=== PATIENT | female | born 1930 | race Hispanic/Latino ===

== ENCOUNTER 2018-01-19 07:21 | Day surgery (SDC) | payer MEDICARE, BC ==
[2018-01-17 14:19] VITALS: BMI 28.6
[2018-01-19 08:16] LABS: BASO # 0.04 K/mm3 (0.0-2.0); BASO % 0.5 % (0.0-3.0); EOS # 0.1 (0.0-0.7); EOS % 1.4 % (1.5-5.0); GRAN # 6.38 (1.4-6.5); HEMOGLOBIN 13.5 g/dL (12.0-16.0); LYMPH # 1.2 (1.2-3.4); LYMPH % 14.1 % (22.0-35.0); MEAN CELL VOLUME 93.4 fl (80.0-105.0); MEAN CORPUSCULAR HEMOGLOBIN 30.7 pg (25.0-35.0); MEAN CORPUSCULAR HGB CONC 32.8 g/dl (31.0-37.0); MEAN PLATELET VOLUME 9.4 fl (7.0-11.0); MONO # 0.7 (0.1-0.6); RBC 4.4 10^6/uL (3.5-6.1); RED CELL DISTRIBUTION WIDTH 14.1 % (11.5-14.5); WHITE BLOOD COUNT 8.4 10^3/uL (4.5-11.0)
[2018-01-19 08:27] LABS: INR 0.99; PARTIAL THROMBOPLASTIN TIME 30.7 Seconds (25.1-36.5); PROTHROMBIN TIME 11.4 SECONDS (9.4-12.5)
[2018-01-19 09:30] LABS: BLOOD UREA NITROGEN 17 mg/dL (7-21); CALCIUM 9.8 mg/dL (8.4-10.5); GFR NON-AFRICAN AMERICAN > 60
[2018-01-19] MEDS ORDERED: Liquid Adhesive TOP ONE ×2 (09:58→10:17)
[2018-01-19] MEDS ORDERED: Bupivacaine 0.5% 50 ML IJ ONE (09:58)
[2018-01-19] MEDS ORDERED: Lidocaine 1% Inj (20ml) ONE (09:59)
[2018-01-19] MEDS ORDERED: Rocuronium 10 mg/ml (5 ml) ONE (10:20)
[2018-01-19] MEDS ORDERED: Etomidate 20 mg/10ml Inj IV ONE (10:20)
[2018-01-19] MEDS ORDERED: Succinylcholine 200 mg/10 ml Inj IV ONE (10:21)
[2018-01-19] MEDS ORDERED: Ciprofloxacin 400mg/200ml D5W 400 MG/200 ML BAG IVPB ONE (10:34)
[2018-01-19] MEDS ORDERED: Desflurane Inhalation Anesthetic Liq (240 ml) ONE (10:46)
[2018-01-19] MEDS ORDERED: Phenylephrine 10 mg/ml Inj ONE (10:48)
[2018-01-19] MEDS ORDERED: ePHEDrine 50 mg/ml Inj ONE (11:24)
[2018-01-19] MEDS ORDERED: Neostigmine Methylsulfate 3mg/3ml Syringe IV ONE (12:20)
[2018-01-19] MEDS ORDERED: Morphine 2 mg/ml ISec IVP PRN (12:38)
[2018-01-19] MEDS ORDERED: Oxycodone/Acetaminophen 5/325 mg Tab PO PRN (12:38)
--- NOTE | 2018-01-19 12:48 | PCM.SURG1 ---
Surgeon's Initial Post Op Note - Surgeon's Notes Surgeon: Dr. Russell Sample Paster: Dr. Gardner PGY3 Type of Anesthesia: General Endo Pre-Operative Diagnosis: nonhealing back wound Operative Findings: see dictation Post-Operative Diagnosis: same Operation Performed: wide local exicison of lesion w/ superior and inferior flap advancement Specimen/Specimens Removed: back leasion Estimated Blood Loss: EBL {In ML}: 20 Blood Products Given: N/A Drains Used: Twin Post-Op Condition: Good Date of Surgery/Procedure: 01/19/18 Time of Surgery/Procedure: 12:48
[2018-01-19] MEDS: Non Formulary Medication (Budesonide/Formoterol Fumarate [Symbicort 160-4.5 Mcg Inhaler] 1 IH SCH (17:49)
[2018-01-19] MEDS ORDERED: Non Formulary Medication (Budesonide/Formoterol Fumarate [Symbicort 160-4.5 Mcg Inhaler] 1 IH SCH (18:00)
[2018-01-19] MEDS ORDERED: Enoxaparin 80 mg Syringe SC SCH (18:00)
[2018-01-19] MEDS: Albuterol 0.5% Inhal Sol (2.5 mg/0.5 ml) UD IH SCH (20:04)
--- NOTE | 2018-01-19 20:46 | OP ---
PROCEDURE DATE: 01/19/2018 PREOPERATIVE DIAGNOSIS: Squamous cell carcinoma of the back, measuring 8 x 6 cm. POSTOPERATIVE DIAGNOSIS: Squamous cell carcinoma of the back, measuring 8 x 6 cm. PROCEDURES PERFORMED: 1. Wide and deep excision of the squamous cell ulcerated skin lesion. 2. Advancement flap closure of the 20 x 9 cm wound. SURGEON: Robe Russell MD [employer] TEAM LEAD: Mya Gardner DO ANESTHESIOLOGIST: Dr. Stahl. ANESTHESIA: General endotracheal anesthesia. ESTIMATED BLOOD LOSS: Minimal. SPECIMEN: Back skin lesion. INDICATION FOR PROCEDURE: The patient is an 87-year-old female with a history of large bleeding lesion on the back. The patient is on Coumadin due to the cardiac arrhythmia and at this point, a decision was made to proceed with excision of the lesion in order to prevent her from bleeding. DESCRIPTION OF PROCEDURE: The patient was brought to the operating room and placed on the operating table in supine position. The patient was connected to EKG, blood pressure, and pulse oximetry monitors. The patient then underwent general endotracheal anesthesia and was prepped and draped in the usual sterile fashion after she was placed prone on the table. First, standard time-out procedure took place and everybody in the room agreed as to the patient's identity, diagnosis, and procedure to be performed. Using lidocaine mixed with Marcaine after the excision site was marked, we proceeded with making incision using #15 blade. The incision was carried through the skin into the subcutaneous fat. Using electrocautery, this was carried down to the muscle fascia and carefully elevated off the muscle fascia to expose and free the specimen. Once the entire specimen was removed with the clean skin margins on both sides, we then proceeded with marking the specimen with the stitches for the superior, inferior, and lateral margins. Once this was done, we then proceeded with careful irrigation of the wound and cauterization of all the bleeding points. Once we got excellent hemostasis, we then proceeded with raising flaps laterally for about 10 cm on each side in order to gain adequate skin length to close the wound. Once those flaps were raised and again wounds were copiously irrigated and there was excellent hemostasis, we then proceeded with closure of the wound in order to reapproximate the skin edges. The deep dermal layer was fused with 2-0 Vicryl stitches. Once those reapproximated the skin edges, we then proceeded with 3-0 nylon vertical mattress stitches throughout the entire wound. Once the entire wound was completely closed, a Dermabond dressing was applied to the wound and a sterile dressing was applied on top of this. The patient tolerated the procedure well, and there were no complications. The patient was awakened and transferred to the recovery room for further observation. Robe Russell MD JAROD
[2018-01-19] MEDS ORDERED: Latanoprost 2.5 ml Opht Soln OU SCH (22:00)
[2018-01-19] MEDS ORDERED: LATANOPROST OU SCH (22:00)
[2018-01-20] MEDS: Albuterol 0.5% Inhal Sol (2.5 mg/0.5 ml) UD IH SCH ×2 (07:18→13:21)
[2018-01-20 08:32] LABS: BLOOD UREA NITROGEN 18 mg/dL (7-21); CALCIUM 8.9 mg/dL (8.4-10.5); GFR NON-AFRICAN AMERICAN > 60
[2018-01-20 09:11] LABS: RBC 3.77 10^6/uL (3.5-6.1); WHITE BLOOD COUNT 6.9 10^3/uL (4.5-11.0)
[2018-01-20 09:12] LABS: BASO # 0.02 K/mm3 (0.0-2.0); BASO % 0.3 % (0.0-3.0); EOS # 0.2 (0.0-0.7); EOS % 2.7 % (1.5-5.0); GRAN # 4.88 (1.4-6.5); GRAN % 70.5 % (50.0-68.0); HEMOGLOBIN 11.6 g/dL (12.0-16.0); LYMPH % 14.7 % (22.0-35.0); MEAN CORPUSCULAR HEMOGLOBIN 30.8 pg (25.0-35.0); MEAN CORPUSCULAR HGB CONC 31.8 g/dl (31.0-37.0); MEAN PLATELET VOLUME 9.9 fl (7.0-11.0); MONO # 0.8 (0.1-0.6); MONO % 11.8 % (1.0-6.0); RED CELL DISTRIBUTION WIDTH 14.6 % (11.5-14.5)
[2018-01-20 09:13] LABS: MEAN CELL VOLUME 96.8 fl (80.0-105.0)
[2018-01-20] MEDS ORDERED: Tiotropium 18 mcg Cap For Inhalation IH SCH (10:00)
[2018-01-20] MEDS ORDERED: Enoxaparin 40 mg Syringe SC SCH (10:00)
[2018-01-20] MEDS: Non Formulary Medication (Budesonide/Formoterol Fumarate [Symbicort 160-4.5 Mcg Inhaler] 1 IH SCH (10:30)
[2018-01-20 14:11] VITALS: BP 109/58; PULSE 96; RESP 16; TEMP 98.2; O2SAT 97
== END 2018-01-20 18:55 | disposition home or self-care (01) ==
LOC: SDS 07:21 → 5RSO 14:38 → SDS 01-20 18:55
PROVIDERS: ATTEND General Practice
DX: C44.529 Squamous cell carcinoma of skin of other part of trunk (principal); I10 Essential (primary) hypertension; I25.10 Atherosclerotic heart disease of native coronary artery without angina pectoris; I50.9 Heart failure, unspecified; I49.9 Cardiac arrhythmia, unspecified; I73.9 Peripheral vascular disease, unspecified; Z86.73 Personal history of transient ischemic attack (TIA), and cerebral infarction without residual deficits; Z88.0 Allergy status to penicillin; Z79.01 Long term (current) use of anticoagulants
CPT/HCPCS: 11606; 14001; 36415 ×2; 80048 ×2; 83735; 84100; 85025 ×2; 85610; 85730; 88309; 94640 ×3; 94760; J0330; J0744; J1650; J2001; J2270; J2370; J2405; J2710; J2765; J3010; J7120

== ENCOUNTER 2018-01-22 16:10 | Emergency (ER) | payer MEDICARE, BC ==
[2018-01-22 16:39] VITALS: BMI 29.1
[2018-01-22 17:27] LABS: BASO # 0.04 K/mm3 (0.0-2.0); BASO % 0.6 % (0.0-3.0); EOS # 0.2 (0.0-0.7); EOS % 2.6 % (1.5-5.0); GRAN # 4.38 (1.4-6.5); GRAN % 70.7 % (50.0-68.0); HEMOGLOBIN 12.5 g/dL (12.0-16.0); LYMPH % 15.3 % (22.0-35.0); MEAN CELL VOLUME 94.4 fl (80.0-105.0); MEAN CORPUSCULAR HEMOGLOBIN 30.2 pg (25.0-35.0); MEAN PLATELET VOLUME 9.7 fl (7.0-11.0); MONO # 0.7 (0.1-0.6); MONO % 10.8 % (1.0-6.0); RBC 4.14 10^6/uL (3.5-6.1); RED CELL DISTRIBUTION WIDTH 14.1 % (11.5-14.5); WHITE BLOOD COUNT 6.2 10^3/uL (4.5-11.0)
[2018-01-22 17:35] LABS: INR 1.14; PARTIAL THROMBOPLASTIN TIME 32.1 Seconds (25.1-36.5)
[2018-01-22 17:43] LABS: ALB/GLOB RATIO 1.1 (1.1-1.8); ALT/SGPT 40 U/L (7-56); AST/SGOT 46 U/L (14-36); BLOOD UREA NITROGEN 20 mg/dL (7-21); CALCIUM 9.5 mg/dL (8.4-10.5); GFR NON-AFRICAN AMERICAN > 60
--- NOTE | 2018-01-22 18:50 | CT ---
Date of service: 01/22/2018 PROCEDURE: CT HEAD WITHOUT CONTRAST. HISTORY: vision changes, elevated INR COMPARISON: Noncontrast head CT performed 03/11/09 TECHNIQUE: Axial computed tomography images were obtained through the head/brain without intravenous contrast. Radiation dose: Total exam DLP = 838.03 mGy-cm. This CT exam was performed using one or more of the following dose reduction techniques: Automated exposure control, adjustment of the mA and/or kV according to patient size, and/or use of iterative reconstruction technique. FINDINGS: Streak artifact limits evaluation of the skull base. HEMORRHAGE: No intracranial hemorrhage. BRAIN: Diffuse atrophy with prominence of the ventricles and sulci noted. No mass effect or edema. Intracranial atherosclerosis. Scattered periventricular and subcortical white matter hypodensities, which are nonspecific, but often seen with chronic microvascular ischemic disease. Please note that MRI with diffusion imaging is more sensitive in the detection of acute ischemic event. VENTRICLES: No hydrocephalus. CALVARIUM: Unremarkable. PARANASAL SINUSES: Unremarkable as visualized. No significant inflammatory changes. MASTOID AIR CELLS: Partial opacification of the left mastoid air cells. The right mastoid air cells appear clear. OTHER FINDINGS: Partial opacification of the bilateral external auditory canals, likely cerumen. 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 Correlate clinically. IMPRESSION: Generalized atrophy. Nonspecific white matter changes. Partial opacification left mastoid air cells; correlate clinically for history of mastoiditis. 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 Correlate clinically.
--- NOTE | 2018-01-22 19:08 | ED PDOC ---
Arrival/HPI - General Chief Complaint: Abnormal Labs Time Seen by Provider: 01/22/18 16:20 Historian: Patient - History of Present Illness Narrative History of Present Illness (Text): 87 y/o female with PMH of COPD, CHF, AFib, spinal stenosis, osteoporosis, hearing loss, skin cancer, cataracts who was sent to the ED by her PMD Dr. Fregoso for an INR of 13 in the office. Patient recently had resection of skin cancer on her back on 01/19, with percutaneous drain placement. She was instructed to start taking her Coumadin again yesterday, with followup with her PMD today. On evaluation of her INR in the office, it was found to be 13, which prompted her visit here. Currently c/o bilateral mild blurry vision. Denies fevers, chills, chest pain, SOB, abdominal pain, bruising, weakness, numbness, paresthesia, or any other associated symptoms. Past Medical History - Provider Review Nursing Documentation Reviewed: Yes - Infectious Disease Hx of Infectious Diseases: None - Cardiac Hx Pacemaker: No - Pulmonary Hx Chronic Obstructive Pulmonary Disease (COPD): Yes - Neurological Hx Paralysis: No - Hematological/Oncological Hx Blood Transfusions: No - Musculoskeletal/Rheumatological Hx Musculoskeletal Disorders: Yes Hx Back Pain: Yes - Psychiatric Hx Emotional Abuse: No Hx Physical Abuse: No Hx Substance Use: No - Surgical History Other/Comment: back sx - Anesthesia Hx Anesthesia Reactions: No (STATES ALOT OF [place] POST ANESTHESIA IN PAST) Hx Malignant Hyperthermia: No - Suicidal Assessment Feels Threatened In Home Enviroment: No Family/Social History - Physician Review Nursing Documentation Reviewed: Yes Family/Social History: No Known Family HX Smoking Status: Unknown If Ever Smoked Hx Alcohol Use: Yes (OCCASIONAL WINE) Hx Substance Use: No Allergies/Home Meds Allergies/Adverse Reactions: Allergies Penicillins Allergy (Verified 12/21/17 11:42) ANAPHYLAXIS Home Medications: Home Meds Medication Instructions Recorded Confirmed Tiotropium [Spiriva] 18 mcg IH DAILY 02/13/12 01/19/18 Atenolol [Tenormin] 50 mg PO QPM 01/17/18 01/19/18 Budesonide/Formoterol Fumarate 1 aer IH BID 01/17/18 01/19/18 [Symbicort] Enoxaparin [Lovenox] 80 mg SC BID 01/17/18 01/17/18 Latanoprost/Pf [Latanoprost 0.005% 1 drop OU HS 01/17/18 01/19/18 Eye Drop] Warfarin [Coumadin] 5 mg PO DAILY 01/17/18 01/17/18 Review of Systems - Physician Review All systems were reviewed & negative as marked: Yes - Review of Systems Constitutional: Normal Eyes: Vision Changes. absent: Photophobia ENT: Normal. absent: Sinus Congestion Respiratory: Normal. absent: SOB, Cough Cardiovascular: Normal. absent: Chest Pain, Palpitations Gastrointestinal: Normal. absent: Abdominal Pain, Nausea, Vomiting Genitourinary Female: Normal. absent: Dysuria, Frequency Musculoskeletal: Normal. absent: Back Pain, Neck Pain Skin: Normal Neurological: Normal. absent: Headache, Dizziness, Focal Weakness, Gait Changes, Speech Changes, Facial Droop, Disequilibrium, Seizure Endocrine: Normal. absent: Diaphoresis Hemo/Lymphatic: Normal Psychiatric: Normal Physical Exam Vital Signs Reviewed: Yes Vital Signs Temp Pulse Resp BP Pulse Ox 01/22/18 18:11 89 18 92/59 L 97 01/22/18 16:11 97.8 F 95 H 18 98/58 L 97 Temperature: Afebrile Blood Pressure: Hypotensive Pulse: Regular Respiratory Rate: Normal Appearance: Positive for: Well-Appearing, Non-Toxic, Comfortable Pain Distress: None Mental Status: Positive for: Alert and Oriented X 3 - Systems Exam Head: Present: Atraumatic, Normocephalic Pupils: Present: PERRL Extroacular Muscles: Present: EOMI Conjunctiva: Present: Normal Ears: Present: NORMAL TM, Normal Canal, Other (No mastoid tenderness, no pain on tragal pressure or manipulation of pinna) Mouth: Present: Moist Mucous Membranes Pharnyx: Present: Normal Nose (External): Present: Atraumatic Nose (Internal): Present: Normal Inspection Neck: Present: Normal Range of Motion Respiratory/Chest: Present: Clear to Auscultation, Good Air Exchange. No: Respiratory Distress, Accessory Muscle Use Cardiovascular: Present: Regular Rate and Rhythm, Normal S1, S2. No: Murmurs Abdomen: Present: Normal Bowel Sounds, Other (bruising to abdomen from lovenox injections). No: Tenderness, Distention, Peritoneal Signs Back: Present: Other (dressed surgical excision site without signs of infection; percutaneous drain in place right side with small amount of serosanguinas fluid) Upper Extremity: Present: Normal Inspection, Normal ROM, NORMAL PULSES, Neurovascularly Intact, Capillary Refill < 2s. No: Cyanosis, Edema Lower Extremity: Present: Normal Inspection, NORMAL PULSES, Normal ROM, Neurovascularly Intact, Capillary Refill < 2 s. No: Edema Neurological: Present: GCS=15, CN II-XII Intact, Speech Normal, Motor Func Grossly Intact, Normal Sensory Function, Normal Cerebellar Funct, Gait Normal Skin: Present: Warm, Dry, Normal Color. No: Rashes Psychiatric: Present: Alert, Oriented x 3, Normal Insight, Normal Concentration, Normal Affect, Normal Mood Medical Decision Making ED Course and Treatment: Initial Plan: * CBC, CMP * PT/INR, PTT * Head CT CBC: wnl CMP: wnl PT: 13 INR: 1.14 PTT: 32.[address]: negative for acute pathology Case discussed with Dr. Gabriel, who agrees with plan of care, diagnosis, and patient disposition. Plan of care discussed with patient, and strict instructions given regarding prescriptions, importance of follow up, and signs to return to Emergency Departm ent, to include bleeding, bruising, worsening headache, weakness, numbness, paresthesias, or any other new/worsening symptoms. Patient verbalizes understanding of discussion. Patient A&Ox3, ambulating with steady gait, stable for discharge home. - Lab Interpretations Lab Results: 01/22/18 17:22 12 17:22 Lab Results 01/22/18 17:22: Sodium 139, Potassium 4.7, Chloride 103, Carbon Dioxide 29, Anion Gap 12, BUN 20, Creatinine 0.7, Est GFR ( Amer) > 60, Est GFR (Non- Af Amer) > 60, Random Glucose 104, Calcium 9.5, Total Bilirubin 0.5, AST 46 H, ALT 40, Alkaline Phosphatase 79, Total Protein 7.7, Albumin 4.0, Globulin 3.6, Albumin/Globulin Ratio 1.1 01/22/18 17:22: WBC 6.2, RBC 4.14, Hgb 12.5, Hct 39.1, MCV 94.4, MCH 30.2, MCHC 32.0, RDW 14.1, Plt Count 222, MPV 9.7, Gran % 70.7 H, Lymph % (Auto) 15.3 L, [place] % (Auto) 10.8 H, Eos % (Auto) 2.6, Baso % (Auto) 0.6, Gran # 4.38, Lymph # (Auto) 1.0 L, [place] # (Auto) 0.7 H, Eos # (Auto) 0.2, Baso # (Auto) 0.04 01/22/18 17:22: PT 13.0 H, INR 1.14, APTT 32.1 I have reviewed the lab results: Yes Interpretation: No sign. 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 Ulcer: No History Surgical Site Infection Following: None - Disposition Have Diagnosis and Disposition been Completed?: Yes Diagnosis: Encounter for laboratory test Disposition: HOME/ ROUTINE Disposition Time: 19:00 Patient Plan: Discharge Condition: STABLE Additional Instructions: Take Coumadin and other home medications as prescribed Followup with primary doctor tomorrow Return to ER for any new/worsening symptoms Forms: [employer] (Portuguese)
[2018-01-22 19:21] VITALS: O2SAT 98
[2018-01-22 19:52] VITALS: BP 108/63; PULSE 76; RESP 16; TEMP 98
== END 2018-01-22 19:51 | disposition home or self-care (01) ==
LOC: ED 16:10
DX: Z00.00 Encounter for general adult medical examination without abnormal findings (principal); I48.91 Unspecified atrial fibrillation; I50.9 Heart failure, unspecified; J44.9 Chronic obstructive pulmonary disease, unspecified; M81.0 Age-related osteoporosis without current pathological fracture